=== PATIENT | female | born 1995 | race Caucasian/White ===

== ENCOUNTER 2018-09-28 16:05 | Emergency (ER) | payer SELFPAY ==
[2018-09-28] MEDS ORDERED: KETOROLAC TROMETHAMINE 60 MG/2 ML SDV IM ONE (16:27)
--- NOTE | 2018-09-28 16:30 | ER Document Report ---
ED Flu Like - General Chief Complaint: Flu Symptoms Stated Complaint: VOMITING/FEVER Time Seen by Provider: 09/28/18 16:22 Mode of Arrival: Ambulatory Information source: Patient Notes: History of Present Illness Chief Complaint: [fever] [ ] History obtained from [patient] 23 years old female presents today with nearly 1 week history of fever general malaise body aches and pain headaches on and off and vomited a few times. General muscle aches and pain. Unable to keep anything down due to nausea. Denies any diarrhea. Denies any dysuria frequency urgency. Symptoms began: [past few days] Onset: [gradual] Timing: [constant] Quality: [feels hot] Intensity: [moderate] Location: [generalized] Radiation: [none] Aggravating factors: [none] Relieving factors: [none] Denies weight loss Denies night sweats Review of Systems : All other systems negative as reviewed. CONSTITUTIONAL + Fever. EYES No eye pain. ENT No sore throat, No earache, NO URI symptoms. CARDIOVASCULAR No chest pain. RESPIRATORY No cough, No SOB, No wheezing. GI No abdominal pain, no vomiting, no diarrhea. GENITOURINARY No dysuria. SKIN No rash. NEUROLOGIC No headache. MUSCULOSKELETAL No back pain, Physical Exam CONSTITUTIONAL Vital signs reviewed, Patient has normal respiratory rate, Well appearing, Patient appears comfortable, normal stature. obese HEAD Atraumatic, Normocephalic. EYES Eyes are normal to inspection. ENT Ears normal to inspection, Nose examination normal. NECK No jugular venous distention. RESPIRATORY CHEST Breath sounds normal, No respiratory distress. CARDIOVASCULAR RRR, No murmurs, Normal S1 S2, No rub, No gallop. ABDOMEN Abdomen is nontender, No masses, Bowel sounds normal, No distension, No peritoneal signs. BACK Normal inspection. UPPER EXTREMITY Inspection normal.2+ radila pulses. LOWER EXTREMITY Inspection normal.2+ femoral pulse NEURO No facial droop, normal speech. SKIN Skin is warm, Skin is dry, Skin is normal color.Capillary refill normal. PSYCHIATRIC Normal affect. TRAVEL OUTSIDE OF THE [place] IN LAST 30 DAYS: No - HPI Notes: Dictated - Related Data Allergies/Adverse Reactions: No Known Allergies Allergy (Unverified 09/28/18 16:07) Past Medical History - Social History Smoking Status: Current Every Day Smoker Chew tobacco use (# tins/day): No Frequency of alcohol use: None Drug Abuse: None Lives with: Family Family History: Reviewed & Not Pertinent Patient has suicidal ideation: No Patient has homicidal ideation: No Renal/ Medical History: Denies: Hx Peritoneal Dialysis Past Surgical History: Reports: Hx Oral Surgery - wisdom, Hx Tubal Ligation Review of Systems - Review of Systems Notes: Dictated Physical Exam - Vital signs Vitals: Temp Pulse Resp BP Pulse Ox 100.4 F 128 H 16 133/80 H 95 09/28/18 16:19 09/28/18 16:19 09/28/18 16:19 09/28/18 16:19 09/28/18 16:19 Course - Vital Signs Vital signs: Temp Pulse Resp BP Pulse Ox 100.4 F 128 H 16 133/80 H 95 09/28/18 16:19 09/28/18 16:19 09/28/18 16:19 09/28/18 16:19 09/28/18 16:19 Discharge - Discharge Clinical Impression: Viral syndrome, Dehydration Condition: Fair Disposition: HOME, SELF-CARE Instructions: Dehydration ([facility]), Viral Syndrome ([facility]) Prescriptions: Ondansetron [Zofran Odt 4 mg Tablet] 1 - 2 tab PO Q4H PRN #15 tab.rapdis PRN Reason: For Nausea/Vomiting
[2018-09-28 17:02] LABS: A TYPE INFLUENZA AG NEGATIVE (NEGATIVE); B INFLUENZA AG NEGATIVE (NEGATIVE)
[2018-09-28 19:39] VITALS: BP 128/74
== END 2018-09-28 19:38 | disposition home or self-care (01) ==
LOC: ER 16:05
DX: B34.9 Viral infection, unspecified (principal); E86.0 Dehydration; R11.10 Vomiting, unspecified; R50.9 Fever, unspecified; R53.81 Other malaise; F17.200 Nicotine dependence, unspecified, uncomplicated; Z98.51 Tubal ligation status
CPT/HCPCS: 99283; 96372; 87070; 87880; 87804; J1885